=== PATIENT | male | born 1955 | race Caucasian/White ===

== ENCOUNTER 2020-12-30 10:45 | Emergency (ER) | payer MEDICARE, OTHER, SELFPAY ==
[2020-12-30 10:50] VITALS: BP 143/94; PULSE 80; RESP 15; TEMP 37.1; O2SAT 98; BMI 32.3
--- NOTE | 2020-12-30 10:51 | ED.BACK ---
HPI - Back Pain/Injury General Chief Complaint: Fall Stated Complaint: fell, hurt lower back Time Seen by Provider: 12/30/20 10:48 History of Present Illness HPI Narrative: 65-year-old male nonsmoker with noncontributory medical history presents with his in the chief complaint of a fall last night resulting in a low back injury. He states that he had his leg lift it up and over a short fence and was trying to deal with some unruly geese who worsened having at him and when he tried to get his leg back over the fence he fell back onto his right lower back. He has no pain in his head, neck or midline of his back and is all located in the right posterior hip. He is able to walk but it hurts. He has had sciatica in the past and denies any radicular-type symptoms such as loss of control of bowel or bladder, saddle anesthesia, pain radiating down 1 leg or the other, numbness, tingling or weakness. Pain is worse when he moves and improves with rest. He takes no blood thinners and denies fever Related Data Previous Rx's Medication Instructions Recorded hydrocodone 5 mg-acetaminophen 325 1 tab PO Q4-6H PRN #20 tab 12/30/20 mg tablet Allergies Allergy/AdvReac Type Severity Reaction Status Date / Time No Known Drug Allergies Allergy Verified 12/30/20 10:53 Review of Systems Review of Systems Narrative: GENERAL: Denies chills, fatigue, malaise, fever, sweats. HEENT: Denies sinus pain, ear pain, sore throat, difficulty swallowing, dizziness. RESPIRATORY: Denies dyspnea, cough, wheezing, hemoptysis, sputum. CARDIOVASCULAR: Denies chest pain, palpitations, orthopnea, edema, GASTROINTESTINAL: Denies nausea, vomiting, abdominal pain, diarrhea, constipation, melena. : Denies dysuria, frequency, incontinence, hematuria, urinary retention. MUSCULOSKELETAL: See HPI SKIN: Denies rash, skin lesions, or other NEUROLOGIC: Denies weakness, headache, numbness, change in speech, confusion, seizures, incoordination. PSYCHIATRIC: No concerning psychosocial issues. 12 point review of systems is negative except for those stated above Patient History Social History Smoking Status: Unknown if ever smoked Exam Narrative Exam Narrative: GEN: AOx3 and in mild distress EYES: Pupils are equal, round, and reactive to light and accommodation. Extraoccular muscles are intact bilaterally. There is no subconjunctival hemorrhage or exudate. CHEST: Lungs are clear to auscultation bilaterally and free of wheezes, rales, or rhonchi. Heart rate is regular rhythm, there are no murmurs, clicks, rubs, or gallops. There is no chest wall tenderness. ABD: Abdomen is soft and nontender. There is no guarding or rebound. Bowel sounds are normal in all 4 quadrants. There is no mass or organomegaly. 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 Patient exam notes decreased range of motion and muscle spasm, but no CVA tenderness, or vertebral point tenderness. There are no symptoms of cauda equina such as saddle anesthesia, and decreased reflexes, decreased sensation or strength. EXT: Full painless ROM of all extremities with no loss of sensation or strength. SKIN: Warm, pink, and dry. No erythema or rash Initial Vital Signs Initial Vital Signs: Vital Signs Temperature 98.7 F 12/30/20 10:50 Pulse Rate 80 12/30/20 10:50 Respiratory Rate 15 12/30/20 10:50 Blood Pressure 143/94 H 12/30/20 10:50 Pulse Oximetry 98 12/30/20 10:50 Course Orders Ordered: ED Orders 12/30/20 11:06 XR sacrum coccyx min 2V Stat 12/30/20 11:51 CT pelvis wo con Stat Discontinued Medications Hydrocodone Bitart/Acetaminophen (Hydrocodone/Acet 5/325 Tablet) 1 tab PO NOW ONE Stop: 12/30/20 11:52 Last Admin: 12/30/20 12:14 Dose: 1 tab Documented by: BACILIO Vital Signs Vital signs: Vital Signs - 8 hr 12/30/20 10:50 Temperature 98.7 F Pulse Rate 80 Respiratory Rate 15 Blood Pressure 143/94 H Pulse Oximetry 98 MDM - Back Pain/Injury Imaging Data CT scan - abdomen/pelvis: Radiologist's Impression: Alejandro Plasencia 65 M [address] [id number] Scan ReportSigned Patient: Alejandro Plasencia [facility]#: [id number]: 1955cct:[id number]/Sex: 65 / MDate of Service: 12/30/20Loc: EDAccession Number: [id number] Procedure: CT pelvis wo con Ordering Provider: Nam Baker D.O. PROCEDURE: CT PEL WO CON INDICATIONS: Fall with severe posterior sacral pain TECHNIQUE: Noncontrast 3 mm axial sections acquired through the bony pelvis, with coronal and sagittal reformatting. COMPARISON: [facility], CR, XR SACRUM COCCYX MIN 2V, 12/30/2020, 11:10. FINDINGS: Image quality: Excellent. Bones: On the sagittal reformatted images, there can be seen a step-off within the distal coccyx. No edna fracture lines can be seen. No fracture lines are seen elsewhere. No suspicious lytic or blastic lesions are seen. There is focal L5-S1 degenerative change, with moderate to severe disc space narrowing with associated endplate irregularity and sclerosis. There is at least moderate bilateral neural foraminal narrowing seen at this level, right worse than left. Focal irregularity and sclerosis can be seen involving the iliac aspect of the left sacroiliac joint. Soft tissues: Atherosclerotic calcification is noted. No dilated loops of small bowel are seen. A normal appendix is incidentally noted. Minimal sigmoid diverticulosis is seen, without findings active diverticulitis. No free air or significant fluid can be seen. There is a mild left groin hernia seen, which contains fat, as on series 3, image 42. Prominence of groin lymph nodes can be seen, without edna enlargement. No significant soft tissue hematomas are seen. IMPRESSION: No displaced fractures are seen. There is a step-off seen involving the coccyx, which may be congenital or related to a remote injury. Please correlate with focal tenderness. Incidental note is made of: Focal L5-S1 degenerative change Focal left sacroiliac joint degenerative change Fat containing left groin hernia Normal appendix Dictated by: Esau Valdovinos M.D. on 12/30/2020 at 11:24 Approved by: Esau Valdovinos M.D. on 12/30/2020 at 11:27 Discharge Plan Departure Patient Disposition: Home Clinical Impression: Contusion Instructions: How to Prevent Falls Activity Restrictions/Additional Instructions: *You have been diagnosed with [right posterior hip contusion, imaging would suggest no fracture is present] *What to do: *Please continue to take your regular medications as directed. [ x] New medication prescriptions sent to your pharmacy: [[facility]] [ ] New medication written as a paper prescription [ ] No new medications given *Please follow up with your primary care provider in 2-3 days, call for an appointment. Let them know you were seen in the Emergency Department and that we ask that you be seen in follow up. We will electronically transmit a record of today's note if your PCP is in our system *If you do not have a primary care provider please contact the [facility] Resource line at [phone]. They will ask some questions about your medical history and help get you set up with a doctor in the community. *Return to Emergency Department if you should have any new, worsening or concerning symptoms, such as [fever greater than 101 F, shaking chills, worsening pain, persistent vomiting or other bothersome symptoms] Prescriptions: New hydrocodone-acetaminophen 5-325 mg tablet 1 tab PO Q4-6H PRN (Reason: pain) Qty: 20 RF: 0
--- NOTE | 2020-12-30 11:06 | DI.RAD.S_ITS ---
PROCEDURE: XR SACRUM COCCYX MIN 2V INDICATIONS: fall with pain TECHNIQUE: 3 views of the sacrum and coccyx acquired. COMPARISON: None. FINDINGS: Bones: No fractures or dislocations. No suspicious bony lesions. Age-appropriate bony degenerative changes are seen. Soft tissues: Visualized bowel gas pattern is normal. No suspicious soft tissue densities. IMPRESSION: No displaced fractures are seen on these plain films. Dictated by: Esau Valdovinos M.D. on 12/30/2020 at 10:45 Approved by: Esau Valdovinos M.D. on 12/30/2020 at 10:46
--- NOTE | 2020-12-30 11:51 | DI.CT.S_ITS ---
PROCEDURE: CT PEL WO CON INDICATIONS: Fall with severe posterior sacral pain TECHNIQUE: Noncontrast 3 mm axial sections acquired through the bony pelvis, with coronal and sagittal reformatting. COMPARISON: [facility], CR, XR SACRUM COCCYX MIN 2V, 12/30/2020, 11:10. FINDINGS: Image quality: Excellent. Bones: On the sagittal reformatted images, there can be seen a step-off within the distal coccyx. No edna fracture lines can be seen. No fracture lines are seen elsewhere. No suspicious lytic or blastic lesions are seen. There is focal L5-S1 degenerative change, with moderate to severe disc space narrowing with associated endplate irregularity and sclerosis. There is at least moderate bilateral neural foraminal narrowing seen at this level, right worse than left. Focal irregularity and sclerosis can be seen involving the iliac aspect of the left sacroiliac joint. Soft tissues: Atherosclerotic calcification is noted. No dilated loops of small bowel are seen. A normal appendix is incidentally noted. Minimal sigmoid diverticulosis is seen, without findings active diverticulitis. No free air or significant fluid can be seen. There is a mild left groin hernia seen, which contains fat, as on series 3, image 42. Prominence of groin lymph nodes can be seen, without edna enlargement. No significant soft tissue hematomas are seen. IMPRESSION: No displaced fractures are seen. There is a step-off seen involving the coccyx, which may be congenital or related to a remote injury. Please correlate with focal tenderness. Incidental note is made of: Focal L5-S1 degenerative change Focal left sacroiliac joint degenerative change Fat containing left groin hernia Normal appendix Dictated by: Esau Valdovinos M.D. on 12/30/2020 at 11:24 Approved by: Esau Valdovinos M.D. on 12/30/2020 at 11:27
[2020-12-30] MEDS: HYDROCODONE/ACET 5/325 TABLET 1 TAB PO (12:14)
[2020-12-30 12:58] VITALS: BP 138/78; PULSE 74; RESP 16; O2SAT 98
== END 2020-12-30 12:59 | disposition home or self-care (01) ==
PROVIDERS: Emergency Provider Emergency Medicine
DX: S70.01XA Contusion of right hip, initial encounter (principal); W19.XXXA Unspecified fall, initial encounter
CPT/HCPCS: 72192; 72220; 99284

== ENCOUNTER 2024-01-01 09:26 | Day surgery (SDC) | payer MEDICARE, OTHER, SELFPAY ==
--- NOTE | 2024-01-01 | PATH_ITS ---
[facility] Accession Number: [id number] No. of containers..01 Tissue . 01 Material submitted: . colon - TRANSVERSE POLYP . 01 Diagnosis: TRANSVERSE COLON POLYP, BIOPSY: Tubular adenoma. [facility] 01/05/2024 1036 Local . 01 Electronically signed: . Carola Leigh MD, Pathologist NPI- [id number] . 01 Gross description: . Received in formalin with two patient identifiers and transverse colon polyp, is a single byrd soft tissue fragment 0.5 cm in greatest dimension. Submitted in cassette A1. ([id number]) /[facility] 01/02/2024 1009 Local . 01 Microscopic: . Polypoid colonic mucosa composed of columnar epithelium with hyperchromatic crowded nuclei and mucin depletion. Negative for malignancy. . 01 Pathologist provided ICD-10: K63.5, Z12.11 . 01 CPT . 176324 Specimen Comment: A courtesy copy of this report has been sent to [phone] Performed at: [address] [id number] MD Se Segundo MD Phone: [phone]
[2024-01-01] MEDS: LACTATED RINGERS 1,000 ML 42 ML IV (09:39)
--- NOTE | 2024-01-01 09:48 | PM.HP.1 ---
History of Present Illness History of Present Illness Date Patient Seen: 01/01/24 Time Patient Seen: 09:48 Chief complaint: Screening Colonoscopy Narrative: Alejandro is a 68-year-old man here for colonoscopy. His last was about 15 years ago. No known family history of colon cancer. [facility] Social History Smoking Status: Unknown if ever smoked Meds Home Medications and Allergies Home Medications Medication Instructions Recorded Confirmed Type aspirin 81 mg chewable tablet 1 tab PO DAILY 01/01/24 01/01/24 History hydrochlorothiazide 12.5 mg tablet 12.5 mg PO DAILY 01/01/24 01/01/24 History lisinopril 20 mg tablet 20 mg PO DAILY 01/01/24 01/01/24 History rosuvastatin 20 mg tablet 20 mg PO DAILY 01/01/24 01/01/24 History tamsulosin 0.4 mg capsule 0.4 mg PO DAILY 01/01/24 01/01/24 History Allergies Allergy/AdvReac Type Severity Reaction Status Date / Time No Known Drug Allergies Allergy Verified 01/01/24 09:43 Exam Const General: No acute distress Resp Effort & Inspection: normal respiratory effort Assessment & Plan Assessment and plan (1) Colon cancer screening: Status: Acute Plan We reviewed the risks and benefits of colonoscopy and he would like to proceed. Time-Based Coding :: [TOTAL MINUTES] spent with patient and on the chart (including review of chart, obtaining history, exam, reviewing outside data, placing orders, documenting exam and treatment plan, and counseling patient) on [DATE].
[2024-01-01 09:55] VITALS: BP 146/86; PULSE 81; RESP 18; TEMP 36.4; O2SAT 97
--- NOTE | 2024-01-01 10:47 | P.HP_ITS ---
History of Present Illness History of Present Illness Date Patient Seen: 01/01/24 Chief complaint: Screening Colonoscopy Narrative: Alejandro is a 68-year-old man here for colonoscopy. His last was about 15 years ago. No known family history of colon cancer. [facility] Social History Smoking Status: Unknown if ever smoked Meds Home Medications and Allergies Home Medications Medication Instructions Recorded Confirmed Type aspirin 81 mg chewable tablet 1 tab PO DAILY 01/01/24 01/01/24 History hydrochlorothiazide 12.5 mg tablet 12.5 mg PO DAILY 01/01/24 01/01/24 History lisinopril 20 mg tablet 20 mg PO DAILY 01/01/24 01/01/24 History rosuvastatin 20 mg tablet 20 mg PO DAILY 01/01/24 01/01/24 History tamsulosin 0.4 mg capsule 0.4 mg PO DAILY 01/01/24 01/01/24 History Allergies Allergy/AdvReac Type Severity Reaction Status Date / Time No Known Drug Allergies Allergy Verified 01/01/24 09:43 Exam Vital Signs (past 8 hours): - 01/01/24 09:55 Temperature 97.5 F L Pulse Rate 81 Respiratory Rate 18 Blood Pressure 146/86 H Pulse Oximetry 97 Oxygen Delivery Method Room Air Oxygen Delivery Method Room Air Assessment & Plan Assessment and plan (1) Colon cancer screening: Status: Acute Plan We reviewed the risks and benefits of colonoscopy and he would like to proceed. Time-Based Coding :: [TOTAL MINUTES] spent with patient and on the chart (including review of chart, obtaining history, exam, reviewing outside data, placing orders, documenting exam and treatment plan, and counseling patient) on [DATE].
--- NOTE | 2024-01-01 10:48 | PM.OP.COLON ---
Operative Date/Time/Diagnoses Date of procedure: 01/01/24 Time of procedure: 10:48 Pre-op diagnosis: Colon cancer screening Post-op diagnosis: same Procedure & Clinicians Study performed: Colonoscopy Same procedure as scheduled: Yes Surgeon: Andrea Nassar Procedure Notes Procedure in detail: Surgeon: Andrea Nassar MD Anesthesia: Georgia Jacobs MD Procedure: The patient was brought to the endoscopy suite, placed in left lateral decubitus position. The patient was connected to monitoring devices. A time-out was performed. Sedation was administered. Once the patient was adequately sedated, a digital rectal exam was performed and was normal. The scope was then inserted and advanced to the cecum where the appendiceal orifice was identified and photographed. The scope was then slowly withdrawn over greater than 6 minutes. The mucosa was thoroughly inspected. There was a 5 mm polyp in the transverse colon removed with a cold snare. The scope was retroflexed in the rectum. No other abnormalities were found. The scope was straightened and removed. The patient was awakened and brought to recovery. Scope withdrawal time: 11 minutes Sedation time: 16 minutes EBL: 5 mL Findings: 5 mm transverse colon polyp Post-procedure Disposition: PACU
[2024-01-01 10:50] VITALS: BP 101/72; PULSE 71; RESP 14; TEMP 36.1; O2SAT 96
[2024-01-01 10:55] VITALS: BP 108/77; PULSE 79; RESP 78; TEMP 36.1; O2SAT 96
[2024-01-01 11:00] VITALS: BP 111/77; PULSE 75; RESP 14; O2SAT 96
[2024-01-01 11:02] VITALS: BP 106/71; PULSE 70; RESP 14; TEMP 36.2; O2SAT 96
== END 2024-01-01 11:22 | disposition home or self-care (01) ==
PROVIDERS: Referring Provider Surgery; Visit Provider Surgery
PROC: 0DJD8ZZ Inspection of Lower Intestinal Tract, Via Natural or Artificial Opening Endoscopic (ICD-10-PCS; CPT 45378; principal; 2024-01-01 10:30)
DX: Z12.11 Encounter for screening for malignant neoplasm of colon (principal); D12.3 Benign neoplasm of transverse colon
CPT/HCPCS: 45385; J2704